=== PATIENT | female | born 2000 | race Caucasian/White ===

== ENCOUNTER 2020-12-10 23:26 | Emergency (ER) | payer OTHER ==
[2020-12-11 00:08] VITALS: BP 112/81; PULSE 89; TEMP 98; BMI 21.6
[2020-12-11] MEDS ORDERED: ACETAMINOPHEN 325 MG TABLET (FP) PO ONE (00:42)
[2020-12-11] MEDS ORDERED: ACETAMINOPHEN 325 MG TABLET (FP) ONE (00:51)
== END 2020-12-11 02:14 | disposition home or self-care (01) ==
LOC: JER 23:26
DX: M25.561 Pain in right knee (principal)
CPT/HCPCS: 73562-TC-RT-FY; 84703; 99284-25